=== PATIENT | male | born 1955 | race Caucasian/White ===

== ENCOUNTER 2020-10-06 11:32 | Inpatient (IN) | payer OTHER ==
[2020-10-06] MEDS ORDERED: MAG HYDROX/AL HYDROX/SIMETH 30 ML UNIT-DOSE CUP PO PRN (14:11)
[2020-10-06] MEDS ORDERED: METHOCARBAMOL 500 MG TABLET PO PRN (14:11)
[2020-10-06] MEDS ORDERED: ACETAMINOPHEN 325 MG TABLET (FP) PO PRN ×2 (14:11)
[2020-10-06] MEDS ORDERED: MENTHOL/PHENOL 1 EACH UD MM PRN (14:11)
[2020-10-06] MEDS ORDERED: BISMUTH SUBSALICYLATE 524 MG/30 ML UD PO PRN (14:11)
[2020-10-06] MEDS ORDERED: MAGNESIUM HYDROX 2400MG/30ML ORAL SUSPENSION 30 ML CUP PO PRN (14:11)
[2020-10-06] MEDS ORDERED: ONDANSETRON *ODT* 4 MG TABLET SL PRN (14:11)
[2020-10-06] MEDS ORDERED: MAGNESIUM CITRATE 300 ML BOTTLE PO PRN (14:11)
[2020-10-06] MEDS ORDERED: chlordiazePOXIDE HCL 25 MG CAPSULE PO PRN (14:13)
[2020-10-06] MEDS ORDERED: BACLOFEN 10 MG TABLET (FP) PO PRN (14:19)
[2020-10-06] MEDS ORDERED: ALBUTEROL SO4 HFA INHALER IH PRN (14:30)
[2020-10-06 14:35] VITALS: BMI 26.2
[2020-10-06 16:32] LABS: HEMATOCRIT 45.6 % (35.4-49); HEMOGLOBIN 15.6 GM/dL (11.7-16.9); MCH 30.9 pg (25.7-33.7); MCHC 34.1 g/dl (32.0-35.9); MEAN CELL VOLUME 90.6 fl (80-96); MEAN PLT VOLUME 8.4 fl (7.5-11.1); PLATELET COUNT 307 K/MM3 (134-434); POTASSIUM 4.4 mmol/L (3.5-5.1); RBC 5.04 M/mm3 (4.00-5.60); RDW 13.9 % (11.9-15.9); WHITE BLOOD COUNT 10.2 K/mm3 (4.0-10.0)
[2020-10-06 16:57] LABS: CALCIUM 9.3 mg/dL (8.5-10.1)
[2020-10-06 16:58] LABS: ALBUMIN 4.1 g/dl (3.4-5.0)
[2020-10-06 17:01] LABS: CREATININE 1.6 mg/dL (0.55-1.3)
[2020-10-06 17:03] LABS: BILIRUBIN,TOTAL 0.9 mg/dL (0.2-1)
[2020-10-06 17:04] LABS: TOT PROT 7.9 g/dl (6.4-8.2)
[2020-10-06] MEDS: chlordiazePOXIDE HCL 25 MG CAPSULE PO SCH ×2 (17:32→22:49)
[2020-10-06] MEDS: hydrOXYzine PAMOATE 25 MG CAPSULE (FP) PO SCH ×2 (17:32→22:48)
[2020-10-06] MEDS: PRENATAL VITAMINS W/ FOLIC ACID TABLET (FP) PO SCH (18:21)
[2020-10-06] MEDS: BUDESONIDE/FORMETEROL FUMARATE 160/4.5 mcg INHALER IH SCH ×2 (18:21→22:50)
[2020-10-06] MEDS: THIAMINE HCL 100 MG TABLET (FP) PO SCH (22:48)
[2020-10-06] MEDS: MELATONIN 5 MG TABLETS PO SCH (22:48)
[2020-10-06] MEDS: GABAPENTIN 400 MG CAPSULE PO SCH (22:48)
[2020-10-07] MEDS: hydrOXYzine PAMOATE 25 MG CAPSULE (FP) PO SCH ×2 (05:42→11:31)
[2020-10-07] MEDS: GABAPENTIN 400 MG CAPSULE PO SCH ×3 (05:42→22:18)
[2020-10-07] MEDS: chlordiazePOXIDE HCL 25 MG CAPSULE PO SCH ×4 (05:42→22:19)
[2020-10-07] MEDS ORDERED: ERGOCALCIFEROL (VIT D2) 50,000 UNIT (1.25 MG) CAPSULE PO SCH (10:00)
[2020-10-07] MEDS ORDERED: hydrOXYzine PAMOATE 25 MG CAPSULE (FP) PO PRN (10:22)
[2020-10-07] MEDS: IBUPROFEN 400 MG TABLET (FP) PO PRN ×2 (10:29→17:30)
[2020-10-07] MEDS: BUDESONIDE/FORMETEROL FUMARATE 160/4.5 mcg INHALER IH SCH ×2 (10:31→22:17)
[2020-10-07] MEDS: NICOTINE 7 MG/24 HOURS TOPICAL PATCH TD SCH (10:31)
[2020-10-07] MEDS: PRENATAL VITAMINS W/ FOLIC ACID TABLET (FP) PO SCH (10:31)
[2020-10-07] MEDS ORDERED: MIRTAZAPINE 45 MG PO SCH (22:00)
[2020-10-07] MEDS: traZODone HCL 100 MG TABLET (FP) PO SCH (22:18)
[2020-10-07] MEDS: MIRTAZAPINE 15 MG, MIRTAZAPINE 30 MG PO SCH (22:18)
[2020-10-07] MEDS: MELATONIN 5 MG TABLETS PO SCH (22:18)
[2020-10-07] MEDS: THIAMINE HCL 100 MG TABLET (FP) PO SCH (22:18)
[2020-10-08] MEDS: GABAPENTIN 400 MG CAPSULE PO SCH ×3 (05:41→22:40)
[2020-10-08] MEDS: chlordiazePOXIDE HCL 25 MG CAPSULE PO SCH ×3 (05:41→18:28)
[2020-10-08] MEDS: PRENATAL VITAMINS W/ FOLIC ACID TABLET (FP) PO SCH (10:11)
[2020-10-08] MEDS: NICOTINE 7 MG/24 HOURS TOPICAL PATCH TD SCH (10:12)
[2020-10-08] MEDS: BUDESONIDE/FORMETEROL FUMARATE 160/4.5 mcg INHALER IH SCH ×2 (10:17→22:41)
[2020-10-08 13:05] LABS: HEMATOCRIT 46.3 % (35.4-49); HEMOGLOBIN 15.2 GM/dL (11.7-16.9); LYMPH % 14.9 % (8-40); MCHC 32.9 g/dl (32.0-35.9); MEAN CELL VOLUME 91.3 fl (80-96); MEAN PLT VOLUME 8.8 fl (7.5-11.1); MONO % 10.9 % (3.8-10.2); NEUT % 70.2 % (42.8-82.8); PLATELET COUNT 295 K/MM3 (134-434); RBC 5.07 M/mm3 (4.00-5.60); RDW 13.8 % (11.9-15.9); WHITE BLOOD COUNT 7.7 K/mm3 (4.0-10.0)
[2020-10-08 13:08] LABS: POTASSIUM 4.8 mmol/L (3.5-5.1)
[2020-10-08 13:11] LABS: CALCIUM 8.9 mg/dL (8.5-10.1)
[2020-10-08 13:12] LABS: ALBUMIN 3.3 g/dl (3.4-5.0); BLOOD UREA NITROGEN 22.4 mg/dL (7-18)
[2020-10-08 13:15] LABS: CREATININE 1.1 mg/dL (0.55-1.3)
[2020-10-08 13:16] LABS: BILIRUBIN,TOTAL 0.2 mg/dL (0.2-1); TOT PROT 6.6 g/dl (6.4-8.2)
[2020-10-08] MEDS: MELATONIN 5 MG TABLETS PO SCH (22:40)
[2020-10-08] MEDS: traZODone HCL 100 MG TABLET (FP) PO SCH (22:40)
[2020-10-08] MEDS: MIRTAZAPINE 15 MG, MIRTAZAPINE 30 MG PO SCH (22:41)
[2020-10-08] MEDS: THIAMINE HCL 100 MG TABLET (FP) PO SCH (22:41)
[2020-10-09] MEDS ORDERED: chlordiazePOXIDE HCL 10 MG CAPSULE PO PRN
[2020-10-09] MEDS: chlordiazePOXIDE HCL 10 MG CAPSULE PO SCH ×4 (06:03→22:08)
[2020-10-09] MEDS: GABAPENTIN 400 MG CAPSULE PO SCH ×3 (06:03→22:08)
[2020-10-09] MEDS: chlordiazePOXIDE HCL 25 MG CAPSULE PO SCH (06:55)
[2020-10-09] MEDS: PRENATAL VITAMINS W/ FOLIC ACID TABLET (FP) PO SCH (10:09)
[2020-10-09] MEDS: NICOTINE 7 MG/24 HOURS TOPICAL PATCH TD SCH (10:09)
[2020-10-09] MEDS: BUDESONIDE/FORMETEROL FUMARATE 160/4.5 mcg INHALER IH SCH ×2 (10:11→22:10)
[2020-10-09] MEDS: amLODIPine BESYLATE 5 MG TABLET (FP) PO SCH (15:49)
[2020-10-09] MEDS: MELATONIN 5 MG TABLETS PO SCH (22:08)
[2020-10-09] MEDS: THIAMINE HCL 100 MG TABLET (FP) PO SCH (22:08)
[2020-10-09] MEDS: traZODone HCL 100 MG TABLET (FP) PO SCH (22:08)
[2020-10-09] MEDS: CLOTRIMAZOLE 1% CREAM 15 GM TUBE TP SCH (22:08)
[2020-10-09] MEDS: MIRTAZAPINE 15 MG, MIRTAZAPINE 30 MG PO SCH (22:10)
[2020-10-10] MEDS: chlordiazePOXIDE HCL 10 MG CAPSULE PO SCH ×2 (05:16→17:37)
[2020-10-10] MEDS: GABAPENTIN 400 MG CAPSULE PO SCH ×3 (05:17→22:27)
[2020-10-10] MEDS: IBUPROFEN 400 MG TABLET (FP) PO PRN (09:37)
[2020-10-10] MEDS: BUDESONIDE/FORMETEROL FUMARATE 160/4.5 mcg INHALER IH SCH ×2 (09:38→22:27)
[2020-10-10] MEDS: CLOTRIMAZOLE 1% CREAM 15 GM TUBE TP SCH ×2 (09:39→22:54)
[2020-10-10] MEDS: PRENATAL VITAMINS W/ FOLIC ACID TABLET (FP) PO SCH (09:39)
[2020-10-10] MEDS: amLODIPine BESYLATE 5 MG TABLET (FP) PO SCH (09:39)
[2020-10-10] MEDS: NICOTINE 7 MG/24 HOURS TOPICAL PATCH TD SCH (09:39)
[2020-10-10] MEDS: MELATONIN 5 MG TABLETS PO SCH (22:26)
[2020-10-10] MEDS: traZODone HCL 100 MG TABLET (FP) PO SCH (22:26)
[2020-10-10] MEDS: THIAMINE HCL 100 MG TABLET (FP) PO SCH (22:26)
[2020-10-10] MEDS: MIRTAZAPINE 15 MG, MIRTAZAPINE 30 MG PO SCH (22:27)
[2020-10-11] MEDS ORDERED: chlordiazePOXIDE HCL 10 MG CAPSULE PO ONE (05:00)
[2020-10-11] MEDS: GABAPENTIN 400 MG CAPSULE PO SCH (05:31)
[2020-10-11] MEDS: IBUPROFEN 400 MG TABLET (FP) PO PRN (08:33)
[2020-10-11 09:21] VITALS: BP 148/81; PULSE 97; TEMP 97.8
[2020-10-11] MEDS: amLODIPine BESYLATE 5 MG TABLET (FP) PO SCH (10:02)
[2020-10-11] MEDS: BUDESONIDE/FORMETEROL FUMARATE 160/4.5 mcg INHALER IH SCH (10:02)
[2020-10-11] MEDS: PRENATAL VITAMINS W/ FOLIC ACID TABLET (FP) PO SCH (10:02)
[2020-10-11] MEDS: CLOTRIMAZOLE 1% CREAM 15 GM TUBE TP SCH (10:03)
[2020-10-11] MEDS: NICOTINE 7 MG/24 HOURS TOPICAL PATCH TD SCH (10:04)
== END 2020-10-11 11:00 | disposition other institution (70) | DRG 773 ==
LOC: YASAS 11:32 → Y3N 16:26
PROVIDERS: ADMIT Allergy & Immunology; ATTEND Allergy & Immunology
PROC: HZ2ZZZZ Detoxification Services for Substance Abuse Treatment (ICD-10-PCS; principal; 2020-10-06)
DX: F11.23 Opioid dependence with withdrawal (principal); F10.230 Alcohol dependence with withdrawal, uncomplicated; F14.20 Cocaine dependence, uncomplicated; F12.20 Cannabis dependence, uncomplicated; F17.210 Nicotine dependence, cigarettes, uncomplicated; F19.282 Other psychoactive substance dependence with psychoactive substance-induced sleep disorder; F19.280 Other psychoactive substance dependence with psychoactive substance-induced anxiety disorder; F19.24 Other psychoactive substance dependence with psychoactive substance-induced mood disorder; F32.9 Major depressive disorder, single episode, unspecified; F43.10 Post-traumatic stress disorder, unspecified; E88.09 Other disorders of plasma-protein metabolism, not elsewhere classified; J44.9 Chronic obstructive pulmonary disease, unspecified; B35.4 Tinea corporis; R79.89 Other specified abnormal findings of blood chemistry; R73.9 Hyperglycemia, unspecified; R03.0 Elevated blood-pressure reading, without diagnosis of hypertension; Z98.1 Arthrodesis status; Z98.890 Other specified postprocedural states
CPT/HCPCS: 36415; 80053; 82947; 83036; 85025; 85027; 86780; 93005; 93010; C9803; U0003